=== PATIENT | female | born 1970 | race American Indian/Alaskan Native ===

== ENCOUNTER 2017-01-27 17:27 | Emergency (ER) | payer SELFPAY ==
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
[2017-01-27] MEDS ORDERED: TORADOL IM ONE (21:53)
[2017-01-27] MEDS ORDERED: FLEXERIL PO ONE (21:54)
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
[2017-01-27] MEDS ORDERED: BENADRYL ONE (22:57)
[2017-01-27] MEDS ORDERED: BENADRYL IM ONE (22:57)
[2017-01-27 23:29] VITALS: BP 137/86
== END 2017-01-27 23:27 | disposition home or self-care (01) ==
LOC: ED 17:27
DX: S52.124A Nondisplaced fracture of head of right radius, initial encounter for closed fracture (principal); E11.9 Type 2 diabetes mellitus without complications; M19.90 Unspecified osteoarthritis, unspecified site; J45.909 Unspecified asthma, uncomplicated; J44.9 Chronic obstructive pulmonary disease, unspecified; F12.90 Cannabis use, unspecified, uncomplicated; Z87.891 Personal history of nicotine dependence; Z86.73 Personal history of transient ischemic attack (TIA), and cerebral infarction without residual deficits; V49.9XXA Car occupant (driver) (passenger) injured in unspecified traffic accident, initial encounter; Y93.89 Activity, other specified; Y99.9 Unspecified external cause status; Y92.410 Unspecified street and highway as the place of occurrence of the external cause
CPT/HCPCS: 29105; 73080; 73090; 96372; 99284; J1200; J1885

== ENCOUNTER 2017-04-22 12:23 | Emergency (ER) | payer MEDICAID ==
[2017-04-22 12:34] VITALS: BP 153/73
--- NOTE | 2017-04-22 14:52 | Emergency Department Report ---
HPI - General Chief Complaint: Upper Respiratory Infection Time Seen by Provider: 04/22/17 14:38 - HPI HPI: There reporting cough and flulike symptoms for about a week she said that prior to that she is having nasal congestion and runny nose that she uses Flonase that didn't help. She is complaining that her chest is sore with cough and she has a productive yellow cough. Denies any nausea or vomiting. Denies any fever or chills. Denies any shortness of breath. She is complaining of bilateral ear pain. Pain to her ear 6 out of 10 and achy. Patient has history of asthma and says that she believes she is having an asthma flare and she tried her Symbicort and Ventolin but is just not helping and. She has a history of arthritis, asthma, COPD, TIA, DJD and diet-controlled diabetes. She' s had tubal ligation and hysterectomy right hip replacement and cervical surgery. Patient says she tried [id number] medication but is also not helping. ED Past Medical Hx - Past Medical History Previous Medical History?: Yes Hx CVA: (TIA) Hx Diabetes: Yes (DIET CONTROLLED) Hx Arthritis: Yes Hx Asthma: Yes Hx COPD: Yes Additional medical history: DJD - Surgical History Past Surgical History?: Yes Additional Surgical History: TUBAL LIGATION. HYSTERECTOMY. RIGHT HIP REPLACEMENT. CERVICAL SURGERY - Family History Family history: hypertension - Social History Smoking Status: Former Smoker Substance Use Type: Alcohol, Prescribed - Medications Home Medications: Home Medications Medication Instructions Recorded Confirmed Last Taken Type Cyclobenzaprine [Flexeril] 10 mg PO BID PRN #30 tablet 01/27/17 Unknown Rx Ibuprofen [Motrin] 800 mg PO Q8HR PRN #40 tablet 01/27/17 Unknown Rx Amoxicillin/Potassium Clav 1 each PO Q12H #20 tablet 04/22/17 Unknown Rx [Augmentin 875-125 Tablet] Cetirizine HCl [ZyrTEC] 10 mg PO QAM #1 capsule 04/22/17 Unknown Rx Fluticasone [Flonase] 1 spray NS QDAY #1 bottle 04/22/17 Unknown Rx predniSONE [Deltasone] 50 mg PO QAM #5 tablet 04/22/17 Unknown Rx ED Review of Systems ROS: Stated complaint: COUGH, CHEST PAIN Other details as noted in HPI Comment: All other systems reviewed and negative Constitutional: no symptoms reported Eyes: denies: eye pain, vision change ENT: ear pain, congestion (congestion with drainage). denies: throat pain Respiratory: cough. denies: orthopnea, shortness of breath, SOB with exertion, SOB at rest, stridor, wheezing Cardiovascular: denies: chest pain, palpitations, dyspnea on exertion, orthopnea , edema, syncope, paroxysmal nocturnal dyspnea Gastrointestinal: denies: abdominal pain, nausea, vomiting Genitourinary: denies: urgency, dysuria, frequency, hematuria, discharge, abnormal menses, dyspareunia Skin: denies: rash Neurological: denies: headache, weakness, numbness, paresthesias, confusion, abnormal gait, vertigo Physical Exam - Physical Exam Vital Signs: Vital Signs 04/22/17 12:29 Temperature 98.1 F Pulse Rate 74 Respiratory 18 Rate Blood Pressure 153/73 O2 Sat by Pulse 97 Oximetry Vital Signs 04/22/17 04/22/17 04/22/17 12:29 15:21 15:29 Temperature 98.1 F Pulse Rate 74 Pulse Rate [ 64 66 Posterior Bilateral Throughout] Respiratory 18 Rate Respiratory 16 16 Rate [Posterior Bilateral Throughout] Blood Pressure 153/73 O2 Sat by Pulse 97 Oximetry General: This is a 47-year-old female well-nourished well-developed in no acute distress. Physical Exam: Head: Normocephalic, atraumatic, no abrasion, no bruising and no contusion. Eyes: Biateral pupils equal and reactive to light, bilateral EOM intact.. Bilateral conjunctival and sclera without injection, normal accommodation. No nystagmus Mouth: Moist, no pharyngeal erythema or exudate. No peritonsillar abscesses. Uvula is midline and oral airways patent. Ears: BiLateral TM congested without any erythema, bilateral EAC normal and no maxillary or frontal sinus tenderness. Clear drainage noted Neck: Supple,No Cervical adenopathy, full range of motion and no C-spine tenderness. No swelling or tracheal deviation normal reflexes Abdomen: Non tender to palpate in all quadrants, no guarding rebound tenderness. Normal bowel thousand all quadrants and no CVA tenderness Cardiovascular: S1, S2. Regular rate and rhythm. No murmur. Capillary refill is less then 3 seconds. Lungs: Show wheezes and upper lung young. No rhonchi or rales. No chest wall tenderness. Pt with dry cough. No use of accessory muscles. MSK: Strength 5/5 in all extremities. No joint deformity or crepitus. Normal inspection. Full range of motion to all extremities Extremities: No clubbing, cyanosis or edema. +2 pulses. No neurovascular compromise Skin: Clean, dry and intact. No rash or lesions. ED Course Vital Signs 04/22/17 12:29 Temperature 98.1 F Pulse Rate 74 Respiratory 18 Rate Blood Pressure 153/73 O2 Sat by Pulse 97 Oximetry Vital Signs 04/22/17 04/22/17 04/22/17 12:29 15:21 15:29 Temperature 98.1 F Pulse Rate 74 Pulse Rate [ 64 66 Posterior Bilateral Throughout] Respiratory 18 Rate Respiratory 16 16 Rate [Posterior Bilateral Throughout] Blood Pressure 153/73 O2 Sat by Pulse 97 Oximetry - Reevaluation(s) Reevaluation #1: 04/22/17 16:33 She received DuoNeb 1 treatment in emergency room and lungs reevaluated with clear lung sounds and she says she feels better. She received Deltasone 60 mg by mouth and Rocephin 1 g IM in the emergency room. ED Medical Decision Making - Medical Decision Making ED course: Patient here reports respiratory symptoms and physical findings for acute asthma exacerbation, cough and she has multiple comormidities therefore patient will be placed on antibiotic due to the prolonged symptoms. She is at risk for pneumonia from multiple comorbidities. Patient given DuoNeb treatment 1 in the emergency room, Deltasone 60 mg by mouth and Rocephin 1 g IM. She had no adverse reaction from medication. Lung sounds clear after DuoNeb treatment. Patient reports that she felt better. Decision to place patient on antibiotic due to prolonged time of symptoms and multiple medical problems with her risk for infection. I instructed patient that she should continue to take her asthma medication as previously prescribed and that I'll add steroid and antibiotic to her routine. Patient was understanding the discharge instruction and treatment plan and discharged home with prescription for Flonase, Zyrtec, Augmentin and prednisone. She does have a primary care physician and she was instructed to follow-up with her primary care physician in 4 days Critical care attestation.: If time is entered above; I have spent that time in minutes in the direct care of this critically ill patient, excluding procedure time. ED Disposition Clinical Impression: Cough in adult Acute asthma exacerbation Qualifiers: Asthma severity: mild Asthma persistence: intermittent Qualified Code(s): J45.21 - Mild intermittent asthma with (acute) exacerbation Disposition: DC-01 TO HOME OR SELFCARE Is pt being admited?: No Does the pt Need Aspirin: No Condition: Stable Instructions: Asthma (ED), Acute Cough (ED) Additional Instructions: Follow-up with the primary care physician on 04/26 2017 Take antibiotic as prescribed Ireasey her fluid intake Usenebulizer treatment as previously prescribed Prescriptions: Amoxicillin/Potassium Clav [Augmentin 875-125 Tablet] 1 each PO Q12H #20 tablet Cetirizine HCl [ZyrTEC] 10 mg PO QAM #1 capsule Fluticasone [Flonase] 1 spray NS QDAY #1 bottle predniSONE [Deltasone] 50 mg PO QAM #5 tablet Referrals: PRIMARY CAREMD [Primary Care Provider] - 04/26/17 Forms: Work/School Release Form(ED)
[2017-04-22] MEDS ORDERED: DELTASONE PO ONE (14:58)
[2017-04-22] MEDS ORDERED: PROVENTIL IH ONE (14:58)
[2017-04-22] MEDS ORDERED: ROCEPHIN IM STA (15:02)
[2017-04-22] MEDS ORDERED: XYLOCAINE 1% MPF 5 mL INFILTRATI ONE (15:02)
== END 2017-04-22 16:49 | disposition home or self-care (01) ==
LOC: ED 12:23
DX: J45.21 Mild intermittent asthma with (acute) exacerbation (principal); E11.9 Type 2 diabetes mellitus without complications; J44.9 Chronic obstructive pulmonary disease, unspecified; Z86.73 Personal history of transient ischemic attack (TIA), and cerebral infarction without residual deficits; Z87.891 Personal history of nicotine dependence; M19.90 Unspecified osteoarthritis, unspecified site; Z88.5 Allergy status to narcotic agent
CPT/HCPCS: 94640; 96372; 99283; J0696; J7512

== ENCOUNTER 2017-06-18 12:24 | Emergency (ER) | payer MEDICAID ==
[2017-06-18 12:31] VITALS: BP 159/87
[2017-06-18] MEDS ORDERED: BENADRYL IM ONE (14:23)
[2017-06-18] MEDS ORDERED: TORADOL IM ONE (14:23)
--- NOTE | 2017-06-18 14:33 | Emergency Department Report ---
Chief Complaint: Headache Stated Complaint: HEADACHE X3 DAYS Time Seen by Provider: 06/18/17 14:12 - HPI History of Present Illness: Patient is a 47-year-old Chinese female who is presenting with headache patient states that she has a history of cervical neck pain had surgery approximately 7 years ago. Patient states that her headache is similar to the headache she would get when she would have neck pain exacerbations. Patient is having neck strain with radiation of the headache and posterior head. Patient states there is some mild light sensitivity but no noise sensitivity no nausea vomiting no fever no nuchal rigidity at this time. Patient states the headache is 6 out of 10 has been present for approximately 2 days - ROS Review of Systems: Review of systems is negative for all illness except for those in HPI - Exam Vital Signs: Vital Signs 06/18/17 06/18/17 12:27 13:45 Temperature 98.6 F Pulse Rate 84 Respiratory 18 18 Rate Blood Pressure 159/87 O2 Sat by Pulse 96 100 Oximetry Physical Exam: Focused physical exam patient's general exam no acute distress HEENT within normal limits eyes pupils equal round and reactive to light oropharynx is clear lungs clear to auscultation bilaterally no wheezes rales or rhonchi abdomen soft nontender MSE screening note: Focused history and physical exam performed. Due to findings the following was ordered: ED Medical Decision Making - Medical Decision Making Patient can't take Toradol when she gets Benadryl give her a Toradol shot of Benadryl and start her on Robaxin at home. ED Disposition for MSE Clinical Impression: Tension headache Disposition: DC-01 TO HOME OR SELFCARE Is pt being admited?: No Does the pt Need Aspirin: No Condition: Fair Prescriptions: methOCARBAMOL [Robaxin TAB] 500 mg PO Q6H PRN #15 tablet PRN Reason: Muscle Spasm Referrals: LORENZO ROWE MD [Primary Care Provider] - 3-5 Days
== END 2017-06-18 14:50 | disposition home or self-care (01) ==
LOC: ED 12:24
DX: G44.209 Tension-type headache, unspecified, not intractable (principal); M54.2 Cervicalgia; Z88.6 Allergy status to analgesic agent; Z88.5 Allergy status to narcotic agent
CPT/HCPCS: 96372; 99282; J1200; J1885

== ENCOUNTER 2017-06-28 10:25 | Emergency (ER) | payer MEDICAID ==
[2017-06-28 11:27] VITALS: BP 111/76
[2017-06-28] MEDS ORDERED: BOOSTRIX IM ONE (11:44)
--- NOTE | 2017-06-28 11:49 | Emergency Department Report ---
ED Laceration HPI - HPI Chief Complaint: Wound/Laceration Stated Complaint: FINGER LACERATION Time Seen by Provider: 06/28/17 11:36 Location: Upper Extremity Severity: mild Tetanus Status: Not up to Date Laceration Symptoms: No Foreign Body Sensation, No Numbness, No Weakness, No Pain Other History: This is a 47-year-old female nontoxic, well nourished in appearance, no acute signs of distress presents to the ED with c/o of left ring finger superficial laceration that occurred this morning. She stated she was cutting with a knife and injured her left ring finger. Patient denies any numbness, tingling, fever, chills, nausea vomiting or chest pain. Patient's last tetanus shot was 5 years ago. He states multiple allergies. Past medical history includes arthritis, asthma, COPD, CVA, and diet-controlled diabetes. ED Review of Systems ROS: Stated complaint: FINGER LACERATION Other details as noted in HPI Constitutional: denies: chills, fever Eyes: denies: eye pain, eye discharge, vision change ENT: denies: ear pain, throat pain Respiratory: denies: cough, shortness of breath, wheezing Cardiovascular: denies: chest pain, palpitations Endocrine: no symptoms reported Gastrointestinal: denies: abdominal pain, nausea, diarrhea Genitourinary: denies: urgency, dysuria, discharge Musculoskeletal: denies: back pain, joint swelling, arthralgia Skin: other (lac). denies: rash, lesions Neurological: denies: headache, weakness, paresthesias Psychiatric: denies: anxiety, depression Hematological/Lymphatic: denies: easy bleeding, easy bruising ED Past Medical Hx - Past Medical History Hx CVA: Yes (TIA) Hx Diabetes: Yes (DIET CONTROLLED) Hx Arthritis: Yes Hx Asthma: Yes Hx COPD: Yes Additional medical history: DJD - Surgical History Additional Surgical History: TUBAL LIGATION. HYSTERECTOMY. RIGHT HIP REPLACEMENT. CERVICAL SURGERY - Social History Smoking Status: Never Smoker Substance Use Type: None - Medications Home Medications: Home Medications Medication Instructions Recorded Confirmed Last Taken Type Cyclobenzaprine [Flexeril] 10 mg PO BID PRN #30 tablet 01/27/17 Unknown Rx Ibuprofen [Motrin] 800 mg PO Q8HR PRN #40 tablet 01/27/17 Unknown Rx Amoxicillin/Potassium Clav 1 each PO Q12H #20 tablet 04/22/17 Unknown Rx [Augmentin 875-125 Tablet] Cetirizine HCl [ZyrTEC] 10 mg PO QAM #1 capsule 04/22/17 Unknown Rx Fluticasone [Flonase] 1 spray NS QDAY #1 bottle 04/22/17 Unknown Rx predniSONE [Deltasone] 50 mg PO QAM #5 tablet 04/22/17 Unknown Rx methOCARBAMOL [Robaxin TAB] 500 mg PO Q6H PRN #15 tablet 06/18/17 Unknown Rx Sulfamethoxazole/Trimethoprim 1 each PO BID #14 tablet 06/28/17 Unknown Rx [Bactrim DS TAB] Laceration Physical Exam - Exam General: Vital signs noted. No distress. Alert and acting appropriately. GENERAL: The patient is a well-developed, well-nourished female in no apparent distress. Patient is alert and acting appropriately for age. Alert and oriented 3, no apparent distress, normal gait, atraumatic. HEENT: Head is normocephalic and atraumatic. PERRL, Extraocular muscles are intact. Pupils are equal, round, and reactive to light and accommodation. Nares appeared normal. Mouth is well hydrated and without lesions. Mucous membranes are moist. Posterior pharynx clear of any exudate or lesions. Mouth is well hydrated and without lesions. Tonsils not erythematous or swollen. Uvula midline. Tongue elevated. Mucous members are moist. Posterior pharynx clear, no exudate or lesions. Patent airways. NECK: Supple. No carotid bruits. No lymphadenopathy or thyromegaly.nontender. No meningitic signs are noted. LUNGS: Clear to auscultation. Non labor breathing. No intercostal retractions. Symmetrical with respiration, no wheezing, no rales, or crackles. HEART: Regular rate and rhythm without murmur, rubs or gallops. No reproducible. S1, S2 present, regular rate and rhythm without murmur, no rubs, no gallops. ABDOMEN: Soft, nontender, and nondistended. Positive bowel sounds. No hepatosplenomegaly was noted. No guarding or rebound tenderness, negative epigastric bruit. Negative psoas sign, negative marion sign, negative McBurneys sign EXTREMITIES: Without any cyanosis, clubbing, rash, lesions or edema. Peripheral pulses intact. Capillary refill less than 2 seconds. Full range of motion bilaterally. NEUROLOGIC: Cranial nerves II through XII are grossly intact. Alert and oriented x 3. Normal gait. Symmetrical strength and sensation. Reflexes 2+ throughout. Cerebellar testing normal. GCS score of 15. PSYCHIATRIC: Normal affect with no suicidal or homicidal ideations. Skin: 1 cm superficial linear laceration to the left ring finger. No abscess or swelling noted. Bleeding under control. Wound Length (cm): 1 Laceration Location: Upper Extremity (left fourth finger) Laceration Exam: Yes Normal Distal CMS, No Foreign Body, No Exposed Tendon, Vessel, or Nerve, No Tendon Injury ED Course Vital Signs 06/28/17 11:22 Temperature 98.3 F Pulse Rate 60 Respiratory 18 Rate Blood Pressure 111/76 O2 Sat by Pulse 100 Oximetry - Reevaluation(s) Reevaluation #1: 06/28/17 11:47 Patient is speaking in full sentences with no signs of distress noted. - Laceration /Wound Repair Left Finger Wound Location: upper extremity (left ring finger) Wound Length (cm): 1 Wound's Depth, Shape: superficial, linear Wound Explored: clean Irrigated w/ Saline (ccs): 40 Betadine Prep?: Yes Wound Repaired With: Dermabond Sterile Dressing Applied?: Yes Progress: Under sterile field, I used Betadine to clean the area. I then used 40 mL of normal saline to flush the area. I then used Dermabond to approximate the laceration. I then applied a sterile 4 x 4 with tape. Minimal bleeding noted but is under control. Patient tolerated procedure well with no signs of distress. ED Medical Decision Making - Medical Decision Making 47-year-old female that presents with superficial laceration. Patient is stable and was examined by me. Tetanus booster has been received patient ED. Laceration repair has been performed with Dermabond. Sterile dressing applied. I'll treat patient empirically with Bactrim due to patient stating it was a dirty knife. Patient was instructed Follow-up with a primary care doctor in 3- 5 days or if symptoms worsen and continue return to emergency room as soon as possible. At time time of discharge, the patient does not seem toxic or ill in appearance. No acute signs of distress noted. Patient agrees to discharge treatment plan of care. No further questions noted by the patient. Critical care attestation.: If time is entered above; I have spent that time in minutes in the direct care of this critically ill patient, excluding procedure time. ED Disposition Clinical Impression: Laceration Disposition: DC-01 TO HOME OR SELFCARE Is pt being admited?: No Does the pt Need Aspirin: No Condition: Stable Instructions: Laceration (ED), Skin Adhesive Care (ED) Additional Instructions: Follow-up with a primary care doctor in 3-5 days or if symptoms worsen and continue return to emergency room as soon as possible. Prescriptions: Sulfamethoxazole/Trimethoprim [Bactrim DS TAB] 1 each PO BID #14 tablet Referrals: PRIMARY CAREMD [Primary Care Provider] - 3-5 Days WENDY SAHNI MD [Staff Physician] - 3-[address] [facility] [Outside] - 3-5 Days [facility] [Outside] - 3-5 Days Forms: Work/School Release Form(ED)
== END 2017-06-28 12:02 | disposition home or self-care (01) ==
LOC: ED 10:25
DX: S61.215A Laceration without foreign body of left ring finger without damage to nail, initial encounter (principal); Z86.73 Personal history of transient ischemic attack (TIA), and cerebral infarction without residual deficits; M19.90 Unspecified osteoarthritis, unspecified site; J45.909 Unspecified asthma, uncomplicated; W26.0XXA Contact with knife, initial encounter; Y93.89 Activity, other specified; Y92.89 Other specified places as the place of occurrence of the external cause; Y99.8 Other external cause status
CPT/HCPCS: 90471; 90715

== ENCOUNTER 2018-03-11 11:31 | Emergency (ER) | payer SELFPAY ==
[2018-03-11 12:02] VITALS: BP 146/71
== END 2018-03-11 14:00 | disposition left against medical advice (07) ==
LOC: ED 11:31
DX: M54.2 Cervicalgia (principal); Z53.21 Procedure and treatment not carried out due to patient leaving prior to being seen by health care provider

== ENCOUNTER 2018-03-16 08:53 | Emergency (ER) | payer MEDICAID ==
[2018-03-16 09:00] VITALS: BP 166/61
[2018-03-16] MEDS ORDERED: KEFLEX PO ONE (09:21)
--- NOTE | 2018-03-16 09:21 | Emergency Department Report ---
Abscess Boil HPI - HPI Chief Complaint: Skin/Abscess/Foreign Body Stated Complaint: LUMP BACK OF (R) EAR Time Seen by Provider: 03/16/18 09:12 Duration: 1 Day Location: Other (behind left ear lobe) Severity: Severe History: Yes Pain (8/10 and throbbing), No Fever, No Purulent Drainage, No Numbness, No Insect Bite HPI: She reported that she has small bump behind left earlobe that started yesterday and she says given her headache. She says very painful pain is 8/10 and throbbing. Denies any insect bite and that she thinks is an infected pimple. Tetanus shot is up-to-date. Denies any nausea vomiting. Denies a pain inside her ear any drainage from the ear. Denies any fever or chills. Denies any fever or slurred cough. Worse with touch and no alleviating factors. She says to try to get pus out but it did not come out. No medication taken prior to coming to the emergency room. Home Medications: Previous Rx's Medication Instructions Recorded Last Taken Type Cyclobenzaprine [Flexeril] 10 mg PO BID PRN #30 tablet 01/27/17 Unknown Rx Ibuprofen [Motrin] 800 mg PO Q8HR PRN #40 tablet 01/27/17 Unknown Rx Amoxicillin/Potassium Clav 1 each PO Q12H #20 tablet 04/22/17 Unknown Rx [Augmentin 875-125 Tablet] Cetirizine HCl [ZyrTEC] 10 mg PO QAM #1 capsule 04/22/17 Unknown Rx Fluticasone [Flonase] 1 spray NS QDAY #1 bottle 04/22/17 Unknown Rx predniSONE [Deltasone] 50 mg PO QAM #5 tablet 04/22/17 Unknown Rx methOCARBAMOL [Robaxin TAB] 500 mg PO Q6H PRN #15 tablet 06/18/17 Unknown Rx Sulfamethoxazole/Trimethoprim 1 each PO BID #14 tablet 06/28/17 Unknown Rx [Bactrim DS TAB] Ibuprofen [Motrin] 600 mg PO Q8H PRN #12 tablet 03/16/18 Unknown Rx cephALEXin [Keflex] 500 mg PO Q8HR 7 Days #21 cap 03/16/18 Unknown Rx Allergies/Adverse Reactions: Allergies Allergy/AdvReac Type Severity Reaction Status Date / Time hydrocodone bitartrate AdvReac Vomiting Verified 03/16/18 08:58 [From Vicodin] hydromorphone HCl AdvReac Vomiting Verified 03/16/18 08:58 [From Dilaudid] latex AdvReac Itching Verified 03/16/18 08:58 morphine AdvReac Vomiting Verified 03/16/18 08:58 oxycodone HCl [From Percocet] AdvReac Vomiting Verified 03/16/18 08:58 propoxyphene napsylate AdvReac Vomiting Verified 03/16/18 08:58 [From Darvocet-N 100] tramadol AdvReac Itching Verified 03/16/18 08:58 SEAFOOD Allergy Swelling Uncoded 03/11/18 11:58 ED Review of Systems ROS: Stated complaint: LUMP BACK OF (R) EAR Other details as noted in HPI Constitutional: denies: chills, fever Eyes: denies: eye pain, eye discharge, vision change ENT: denies: congestion Respiratory: denies: cough, shortness of breath, SOB with exertion, SOB at rest , stridor, wheezing Cardiovascular: denies: chest pain, palpitations Gastrointestinal: denies: nausea, vomiting Genitourinary: denies: discharge Musculoskeletal: denies: joint swelling, arthralgia Skin: denies: rash, lesions Neurological: headache. denies: weakness, numbness, paresthesias, confusion, abnormal gait, vertigo ED Past Medical Hx - Past Medical History Previous Medical History?: Yes Hx CVA: Yes (TIA) Hx Diabetes: Yes (DIET CONTROLLED) Hx Arthritis: Yes Hx Asthma: Yes Hx COPD: Yes Additional medical history: DJD - Surgical History Past Surgical History?: Yes Additional Surgical History: TUBAL LIGATION. HYSTERECTOMY. RIGHT HIP REPLACEMENT. CERVICAL SURGERY - Family History Family history: hypertension - Social History Smoking Status: Never Smoker Substance Use Type: None - Medications Home Medications: Home Medications Medication Instructions Recorded Confirmed Last Taken Type Cyclobenzaprine [Flexeril] 10 mg PO BID PRN #30 tablet 01/27/17 Unknown Rx Ibuprofen [Motrin] 800 mg PO Q8HR PRN #40 tablet 01/27/17 Unknown Rx Amoxicillin/Potassium Clav 1 each PO Q12H #20 tablet 04/22/17 Unknown Rx [Augmentin 875-125 Tablet] Cetirizine HCl [ZyrTEC] 10 mg PO QAM #1 capsule 04/22/17 Unknown Rx Fluticasone [Flonase] 1 spray NS QDAY #1 bottle 04/22/17 Unknown Rx predniSONE [Deltasone] 50 mg PO QAM #5 tablet 04/22/17 Unknown Rx methOCARBAMOL [Robaxin TAB] 500 mg PO Q6H PRN #15 tablet 06/18/17 Unknown Rx Sulfamethoxazole/Trimethoprim 1 each PO BID #14 tablet 06/28/17 Unknown Rx [Bactrim DS TAB] Ibuprofen [Motrin] 600 mg PO Q8H PRN #12 tablet 03/16/18 Unknown Rx cephALEXin [Keflex] 500 mg PO Q8HR 7 Days #21 cap 03/16/18 Unknown Rx ED Abscess Boil Physical Exam - Exam General: Vital signs noted. No distress. Alert and acting appropriately. 48-year-old female well-nourished well-developed in no acute distress. Front/Back of Body, Lg (Color): 1 - Pustule to the left posterior earlobe. Erythema tender to palpate with opening and without any drainage. Positive induration and fluctuance. Size: 1 cm (0.2 cm) Exam: Yes Tenderness (left posterior lobe), Yes Fluctuance, Yes Surrounding Cellulites/Erythema, Yes Normal Neurologic Exam (and oriented 3 and normal gait ), Yes Normal Circulation (No cce. + 2 pulses in all extremities, no neurovascular compromise), No Lymphangitis, No Crepitation, No Heart Murmur ( regular rate) I & D Note - I & D Note I & D Note: Simple abscess: Patient reports to her earlobe. Area cleansed with iodine and saline and #22-gauge needle used to make small hole and manually express white pus from the site. No induration present. Minimal irritation and patient feels better. Area cleansed with normal saline and then the chest and site and she was told to follow-up with her primary care physician. ED Course Vital Signs 03/16/18 08:58 Temperature 98.1 F Pulse Rate 64 Respiratory 16 Rate Blood Pressure 166/61 O2 Sat by Pulse 98 Oximetry - Reevaluation(s) Reevaluation #1: 03/16/18 09:58 Status stable C procedure note for details and incision and drainage. She did not want anything for pain emergency room but she was given Keflex 500 mg by mouth prior to discharge. Critical care attestation.: If time is entered above; I have spent that time in minutes in the direct care of this critically ill patient, excluding procedure time. ED Medical Decision Making - Medical Decision Making This is a 48-year-old female here reporting pain to the back of her left ear and thinks the infected pimple. Assessment/plan 1: Painful pustule, left earlobe posteriorly-see procedure note for simple incision and drainage. She is started on Keflex that she did not want anything for pain and she was sent home on Motrin and Keflex and to follow up with her primary care physician . Vital signs are stable she is afebrile and she is nontoxic in appearance. discharged home in stable condition. ED Disposition Clinical Impression: Simple abscess, Encounter for incision and drainage procedure Disposition: TO HOME OR SELFCARE Is pt being admited?: No Does the pt Need Aspirin: No Condition: Stable Instructions: Abscess (ED), Abscess Incision and Drainage (ED), Acute Wound Care (ED) Additional Instructions: Take antibiotic as prescribed Follow-up with your primary care physician in 5 days Apply warm compresses to affected area 3 times a day to facilitate drainage If you noticed that area it is increasing in size, redness, develop fever, nausea and there vomited , palpitation and feeling weak. Return to the emergency room TONE Keep affected area clean and dry. Followed discharge instruction on acute wound care . Apply bacitroban ointment to affected area twice daily. Referrals: PRIMARY CAREMD [Primary Care Provider] - 03/21/18 [facility] [Outside] - 03/21/18 Forms: Work/School Release Form(ED)
== END 2018-03-16 09:45 | disposition home or self-care (01) ==
LOC: ED 08:53
DX: H66.42 Suppurative otitis media, unspecified, left ear (principal); E11.9 Type 2 diabetes mellitus without complications; M19.90 Unspecified osteoarthritis, unspecified site; J44.9 Chronic obstructive pulmonary disease, unspecified; Z86.73 Personal history of transient ischemic attack (TIA), and cerebral infarction without residual deficits; Z90.710 Acquired absence of both cervix and uterus; Z98.51 Tubal ligation status; Z88.8 Allergy status to other drugs, medicaments and biological substances; Z88.6 Allergy status to analgesic agent; Z91.040 Latex allergy status; Z91.013 Allergy to seafood

== ENCOUNTER 2018-09-14 08:34 | Emergency (ER) | payer MEDICAID ==
[2018-09-14 08:45] VITALS: BP 165/68
[2018-09-14] MEDS ORDERED: IBUPROFEN PO ONE (09:17)
--- NOTE | 2018-09-14 09:26 | Emergency Department Report ---
ED Lower Extremity HPI - General Chief Complaint: Extremity Injury, Lower Stated Complaint: FALL/ LEFT FOOT PAIN Time Seen by Provider: 09/14/18 09:08 Source: family Mode of arrival: Ambulatory Limitations: No Limitations - History of Present Illness Initial Comments: This is a 48-year-old female nontoxic, well nourished in appearance, no acute signs of distress presents to the ED with c/o of left knee, ankle and tib-fib pain 1 day. Patient stated that while she was felling she twisted her knee and ankle. Patient denies any direct trauma. Patient denies any numbness, tingling, fever, chills, nausea, vomiting, chest pain, shortness of breath, headache, stiff neck. Patient denies any joint swelling or joint redness. Patient denies decreased range of motion. Patient stated has decreased gait due to pain. -: This morning Injury: Leg: Left, Knee: Left, Ankle: Left Severity: mild Severity scale (0 -10): 8 Improves With: immobilization Worsens With: weight bearing, movement, palpation Associated Symptoms: swelling, able to partially bear weight, ambulatory. denies: snap/pop sensation, numbness, tingling, unable to bear weight - Related Data Previous Rx's Medication Instructions Recorded Last Taken Type Cyclobenzaprine [Flexeril] 10 mg PO BID PRN #30 tablet 01/27/17 Unknown Rx Ibuprofen [Motrin] 800 mg PO Q8HR PRN #40 tablet 01/27/17 Unknown Rx Amoxicillin/Potassium Clav 1 each PO Q12H #20 tablet 04/22/17 Unknown Rx [Augmentin 875-125 Tablet] Cetirizine HCl [ZyrTEC] 10 mg PO QAM #1 capsule 04/22/17 Unknown Rx Fluticasone [Flonase] 1 spray NS QDAY #1 bottle 04/22/17 Unknown Rx predniSONE [Deltasone] 50 mg PO QAM #5 tablet 04/22/17 Unknown Rx methOCARBAMOL [Robaxin TAB] 500 mg PO Q6H PRN #15 tablet 06/18/17 Unknown Rx Sulfamethoxazole/Trimethoprim 1 each PO BID #14 tablet 06/28/17 Unknown Rx [Bactrim DS TAB] Ibuprofen [Motrin] 600 mg PO Q8H PRN #12 tablet 03/16/18 Unknown Rx cephALEXin [Keflex] 500 mg PO Q8HR 7 Days #21 cap 03/16/18 Unknown Rx Ibuprofen [Motrin] 600 mg PO Q8H PRN #20 tablet 09/14/18 Unknown Rx Allergies Allergy/AdvReac Type Severity Reaction Status Date / Time hydrocodone bitartrate AdvReac Vomiting Verified 03/16/18 08:58 [From Vicodin] hydromorphone HCl AdvReac Vomiting Verified 03/16/18 08:58 [From Dilaudid] latex AdvReac Itching Verified 03/16/18 08:58 morphine AdvReac Vomiting Verified 03/16/18 08:58 oxycodone HCl [From Percocet] AdvReac Vomiting Verified 03/16/18 08:58 propoxyphene napsylate AdvReac Vomiting Verified 03/16/18 08:58 [From Darvocet-N 100] tramadol AdvReac Itching Verified 03/16/18 08:58 SEAFOOD Allergy Swelling Uncoded 03/11/18 11:58 ED Review of Systems ROS: Stated complaint: FALL/ LEFT FOOT PAIN Other details as noted in HPI Constitutional: denies: chills, fever Eyes: denies: eye pain, eye discharge, vision change ENT: denies: ear pain, throat pain Respiratory: denies: cough, shortness of breath, wheezing Cardiovascular: denies: chest pain, palpitations Endocrine: no symptoms reported Gastrointestinal: denies: abdominal pain, nausea, diarrhea Genitourinary: denies: urgency, dysuria, discharge Musculoskeletal: arthralgia. denies: back pain, joint swelling Skin: denies: rash, lesions Neurological: denies: headache, weakness, paresthesias Psychiatric: denies: anxiety, depression Hematological/Lymphatic: denies: easy bleeding, easy bruising ED Past Medical Hx - Past Medical History Previous Medical History?: Yes Hx CVA: Yes (TIA) Hx Diabetes: Yes (DIET CONTROLLED) Hx Arthritis: Yes Hx Asthma: Yes Hx COPD: Yes Additional medical history: DJD - Surgical History Past Surgical History?: Yes Additional Surgical History: TUBAL LIGATION. HYSTERECTOMY. RIGHT HIP REPLACEMENT. CERVICAL SURGERY - Social History Smoking Status: Former Smoker Substance Use Type: None - Medications Home Medications: Home Medications Medication Instructions Recorded Confirmed Last Taken Type Cyclobenzaprine [Flexeril] 10 mg PO BID PRN #30 tablet 01/27/17 Unknown Rx Ibuprofen [Motrin] 800 mg PO Q8HR PRN #40 tablet 01/27/17 Unknown Rx Amoxicillin/Potassium Clav 1 each PO Q12H #20 tablet 04/22/17 Unknown Rx [Augmentin 875-125 Tablet] Cetirizine HCl [ZyrTEC] 10 mg PO QAM #1 capsule 04/22/17 Unknown Rx Fluticasone [Flonase] 1 spray NS QDAY #1 bottle 04/22/17 Unknown Rx predniSONE [Deltasone] 50 mg PO QAM #5 tablet 04/22/17 Unknown Rx methOCARBAMOL [Robaxin TAB] 500 mg PO Q6H PRN #15 tablet 06/18/17 Unknown Rx Sulfamethoxazole/Trimethoprim 1 each PO BID #14 tablet 06/28/17 Unknown Rx [Bactrim DS TAB] Ibuprofen [Motrin] 600 mg PO Q8H PRN #12 tablet 03/16/18 Unknown Rx cephALEXin [Keflex] 500 mg PO Q8HR 7 Days #21 cap 03/16/18 Unknown Rx Ibuprofen [Motrin] 600 mg PO Q8H PRN #20 tablet 09/14/18 Unknown Rx ED Physical Exam - General Limitations: No Limitations General appearance: alert, in no apparent distress - Head Head exam: Present: atraumatic, normocephalic - Eye Eye exam: Present: normal appearance - Neck Neck exam: Present: normal inspection, full ROM - Extremities Exam Extremities exam: Present: normal inspection, full ROM, tenderness, normal capillary refill. Absent: joint swelling - Expanded Lower Extremity Exam Left Hip exam: Present: normal inspection, full ROM. Absent: tenderness Upper Leg exam: Present: normal inspection, full ROM. Absent: tenderness Knee exam: Present: normal inspection, full ROM, tenderness, swelling, full knee extension. Absent: abrasion, laceration, ecchymosis, deformity, crepidus, dislocation, erythema, pain w/ pronation/supination, posterior draw sign, pain/laxity with valgus, pain/laxity with varus Lower Leg exam: Present: normal inspection, full ROM, tenderness. Absent: swelling, abrasion Ankle exam: Present: normal inspection, full ROM, tenderness, swelling. Absent: abrasion, laceration, ecchymosis, deformity, crepidus, dislocation, erythema, anterior draw sign Foot/Toe exam: Present: normal inspection, full ROM. Absent: tenderness Neuro vascular tendon exam: Present: no vascular compromise Gait: Positive: observed and limited by pain - Back Exam Back exam: Present: normal inspection, full ROM. Absent: tenderness, CVA tenderness (R), CVA tenderness (L), muscle spasm, paraspinal tenderness, vertebral tenderness, rash noted - Neurological Exam Neurological exam: Present: alert, oriented X3 - Psychiatric Psychiatric exam: Present: normal affect, normal mood - Skin Skin exam: Present: warm, dry, intact, normal color. Absent: rash ED Course Vital Signs 09/14/18 08:43 Temperature 97.8 F Pulse Rate 77 Respiratory 16 Rate Blood Pressure 165/68 O2 Sat by Pulse 97 Oximetry - Reevaluation(s) Reevaluation #1: 09/14/18 09:26 Patient is speaking in full sentences with no signs of distress noted. ED Lower Extremity MDM - Medical Decision Making This is a 48-year-old female that presents with left knee, ankle, and leg strain. Patient is stable and was examined by me. I referred patient to an orthopedic doctor for further evaluation for possible MRI. X-ray has been obtained and dictated by the radiologist. Patient is notified of the x-ray repo rt with noted by the patient. Patient does have normal gait with no tenderness and no joint swelling. No ecchymosis. no joint redness or swelling. Not warm to touch. No signs of cellulites present. Patient received a ankle stirrup and afshni wrap to knee and crutches. Was educatd by RN how to use crutches. Patient was instructed to RICE therapy. Patient received Motrin for pain. Patient is disc harged with Motrin. At time of discharge, the patient does not seem toxic or ill in appearance. No acute signs of distress noted. Patient agrees to discharge treatment plan of care. No further questions noted by the patient. Critical care attestation.: If time is entered above; I have spent that time in minutes in the direct care of this critically ill patient, excluding procedure time. ED Disposition Clinical Impression: Strain of left knee, Left ankle strain Disposition: DC-01 TO HOME OR SELFCARE Is pt being admited?: No Does the pt Need Aspirin: No Condition: Stable Instructions: RICE Therapy (ED), Crutch Instructions (ED), Ankle Sprain (ED), Ankle Stirrup Splint (ED) Additional Instructions: Follow-up with a orthopedic doctor in 3-5 days or if symptoms worsen and continue return to emergency room as soon as possible. Prescriptions: Ibuprofen [Motrin] 600 mg PO Q8H PRN #20 tablet PRN Reason: Pain Referrals: PRIMARY CAREMD [Referring] - 3-5 Days ROSAURA MCLEAN MD [Staff Physician] - 3-5 Days [facility] [Outside] - 3-5 Days Forms: Work/School Release Form(ED)
--- NOTE | 2018-09-14 09:43 | XRay Report ---
LEFT TIBIA/FIBULA: History: Pain. AP and lateral views of the left tibia/fibula demonstrate normal mineralization and contours for this patient's age. No destructive changes are noted and the adjacent soft tissues are normal. IMPRESSION: Normal left tibia/fibula.
--- NOTE | 2018-09-14 09:43 | XRay Report ---
LEFT KNEE, 3 views: History: Pain. The bony architecture is intact without evidence of fracture or dislocation. Moderate osteoarthritic changes are identified in all 3 compartments. No significant soft tissue abnormality is seen. IMPRESSION: Osteoarthritis. No acute injury is identified.
--- NOTE | 2018-09-14 09:44 | XRay Report ---
LEFT ANKLE, 3 views: History: left ankle pain. Bone mineralization is normal. No evidence for acute fracture or bone lesion. Mild osteoarthritic changes are identified at the tibiotalar joint. Large plantar spur. IMPRESSION: Osteoarthritis. Plantar spur. No acute injury is appreciated.
== END 2018-09-14 10:13 | disposition home or self-care (01) ==
LOC: ED 08:34
DX: S96.912A Strain of unspecified muscle and tendon at ankle and foot level, left foot, initial encounter (principal); S86.812A Strain of other muscle(s) and tendon(s) at lower leg level, left leg, initial encounter; J44.9 Chronic obstructive pulmonary disease, unspecified; M19.90 Unspecified osteoarthritis, unspecified site; E11.9 Type 2 diabetes mellitus without complications; Z86.73 Personal history of transient ischemic attack (TIA), and cerebral infarction without residual deficits; Z98.51 Tubal ligation status; Z90.710 Acquired absence of both cervix and uterus; Z87.891 Personal history of nicotine dependence; Z79.899 Other long term (current) drug therapy; Z88.1 Allergy status to other antibiotic agents; Z88.6 Allergy status to analgesic agent; Z88.4 Allergy status to anesthetic agent; Z88.8 Allergy status to other drugs, medicaments and biological substances; Z91.040 Latex allergy status; X50.1XXA Overexertion from prolonged static or awkward postures, initial encounter; Y93.89 Activity, other specified; Y92.89 Other specified places as the place of occurrence of the external cause; Y99.8 Other external cause status

== ENCOUNTER 2018-12-11 17:38 | Emergency (ER) | payer MEDICAID ==
[2018-12-11 17:50] VITALS: BP 148/88
--- NOTE | 2018-12-11 17:55 | Emergency Department Report ---
Blank Doc - Documentation Documentation: This is a 48-year-old female that presents with left knee, tib-fib, and ankle pain x3 months. Patient had a fall 3 months ago and had xrays in the ED 3 months ago here. Denies any new injuries. This initial assessment/diagnostic orders/clinical plan/treatment(s) is/are subject to change based on patient's health status, clinical progression and re- assessment by fellow clinical providers in the ED. Further treatment and workup at subsequent clinical providers discretion. Patient/guardians urged not to elope from the ED as their condition may be serious if not clinically assessed and managed. Initial orders include: 1- Patient sent to [facility] for further evaluation and treatment
[2018-12-11] MEDS ORDERED: DECADRON IM ONE (19:26)
[2018-12-11] MEDS ORDERED: FLEXERIL PO ONE (19:26)
[2018-12-11] MEDS ORDERED: TORADOL IM ONE (19:26)
--- NOTE | 2018-12-11 20:45 | Emergency Department Report ---
ED Extremity Problem HPI - General Chief complaint: Extremity Injury, Lower Stated complaint: LT LEG PAIN Time Seen by Provider: 12/11/18 17:52 Source: patient Mode of arrival: Ambulatory Limitations: No Limitations - History of Present Illness Initial comments: Patient is a 48-year-old -[place] female with a history of chronic osteoarthritis and morbid obesity who presents to the ED with a complaint of acute onset persistent severe left knee joint pain that is reducible left lower leg and left ankle for the last 1 week, worse in the last 2 days. Patient states that she has been taking [id number] NSAIDs with no relief. Patient denies chest pain, shortness of breath, heavy lifting, fall, traumatic injury, numbness and tingling of her left leg, back pain, hip pain, dizziness, or fever and chills. MD Complaint: extremity pain (left knee and lower leg), joint swelling (left knee), joint paint (left knee) -: Sudden, week(s) (1) Location: left, lower extremity (left lower leg), knee History of Same: Yes (chronic osteoathritis) -: Yes arthralgia, No associated dyspnea, No associated chest pain Radiation: none Severity scale (0 -10): 9 Quality: aching, sharp, constant Consistency: constant Improves with: nothing Worsens with: weight bearing, walking, palpation Associated Symptoms: denies other symptoms, arthralgias. denies: chest pain, shortness of breath, fever - Related Data Previous Rx's Medication Instructions Recorded Last Taken Type Cyclobenzaprine [Flexeril] 10 mg PO BID PRN #30 tablet 01/27/17 Unknown Rx Ibuprofen [Motrin] 800 mg PO Q8HR PRN #40 tablet 01/27/17 Unknown Rx Amoxicillin/Potassium Clav 1 each PO Q12H #20 tablet 04/22/17 Unknown Rx [Augmentin 875-125 Tablet] Cetirizine HCl [ZyrTEC] 10 mg PO QAM #1 capsule 04/22/17 Unknown Rx Fluticasone [Flonase] 1 spray NS QDAY #1 bottle 04/22/17 Unknown Rx predniSONE [Deltasone] 50 mg PO QAM #5 tablet 04/22/17 Unknown Rx methOCARBAMOL [Robaxin TAB] 500 mg PO Q6H PRN #15 tablet 06/18/17 Unknown Rx Sulfamethoxazole/Trimethoprim 1 each PO BID #14 tablet 06/28/17 Unknown Rx [Bactrim DS TAB] Ibuprofen [Motrin] 600 mg PO Q8H PRN #12 tablet 03/16/18 Unknown Rx cephALEXin [Keflex] 500 mg PO Q8HR 7 Days #21 cap 03/16/18 Unknown Rx Ibuprofen [Motrin] 600 mg PO Q8H PRN #20 tablet 09/14/18 Unknown Rx Baclofen 20 mg PO Q8H PRN #24 tablet 12/11/18 Unknown Rx Ibuprofen [Motrin] 800 mg PO Q8HR PRN #30 tablet 12/11/18 Unknown Rx Prednisone [predniSONE 10 mg 10 mg PO .TAPER #21 tab.ds.pk 12/11/18 Unknown Rx (6-Day Pack, 21 Tabs)] Allergies Allergy/AdvReac Type Severity Reaction Status Date / Time hydrocodone bitartrate AdvReac Vomiting Verified 12/11/18 17:53 [From Vicodin] hydromorphone HCl AdvReac Vomiting Verified 12/11/18 17:53 [From Dilaudid] latex AdvReac Itching Verified 12/11/18 17:53 morphine AdvReac Vomiting Verified 12/11/18 17:53 oxycodone HCl [From Percocet] AdvReac Vomiting Verified 12/11/18 17:53 propoxyphene napsylate AdvReac Vomiting Verified 12/11/18 17:53 [From Darvocet-N 100] tramadol AdvReac Itching Verified 12/11/18 17:53 SEAFOOD Allergy Swelling Uncoded 12/11/18 17:53 ED Review of Systems ROS: Stated complaint: LT LEG PAIN Other details as noted in HPI Constitutional: denies: chills, fever Eyes: denies: eye pain, eye discharge, vision change ENT: denies: ear pain, throat pain Respiratory: denies: cough, shortness of breath, wheezing Cardiovascular: denies: chest pain, palpitations Endocrine: no symptoms reported Gastrointestinal: denies: abdominal pain, nausea, diarrhea Genitourinary: denies: urgency, dysuria, discharge Musculoskeletal: joint swelling (left knee joint), arthralgia (left knee and left lower leg pain), myalgia. denies: back pain Skin: denies: rash, lesions Neurological: denies: headache, weakness, paresthesias Psychiatric: denies: anxiety, depression Hematological/Lymphatic: denies: easy bleeding, easy bruising ED Past Medical Hx - Past Medical History Previous Medical History?: Yes Hx CVA: Yes (TIA) Hx Diabetes: Yes (DIET CONTROLLED) Hx Arthritis: Yes Hx Asthma: Yes Hx COPD: Yes Additional medical history: DJD - Surgical History Past Surgical History?: Yes Additional Surgical History: TUBAL LIGATION. HYSTERECTOMY. RIGHT HIP REPLACEMENT. CERVICAL SURGERY - Social History Smoking Status: Unknown if ever smoked Substance Use Type: Alcohol, Marijuana, Prescribed - Medications Home Medications: Home Medications Medication Instructions Recorded Confirmed Last Taken Type Cyclobenzaprine [Flexeril] 10 mg PO BID PRN #30 tablet 01/27/17 Unknown Rx Ibuprofen [Motrin] 800 mg PO Q8HR PRN #40 tablet 01/27/17 Unknown Rx Amoxicillin/Potassium Clav 1 each PO Q12H #20 tablet 04/22/17 Unknown Rx [Augmentin 875-125 Tablet] Cetirizine HCl [ZyrTEC] 10 mg PO QAM #1 capsule 04/22/17 Unknown Rx Fluticasone [Flonase] 1 spray NS QDAY #1 bottle 04/22/17 Unknown Rx predniSONE [Deltasone] 50 mg PO QAM #5 tablet 04/22/17 Unknown Rx methOCARBAMOL [Robaxin TAB] 500 mg PO Q6H PRN #15 tablet 06/18/17 Unknown Rx Sulfamethoxazole/Trimethoprim 1 each PO BID #14 tablet 06/28/17 Unknown Rx [Bactrim DS TAB] Ibuprofen [Motrin] 600 mg PO Q8H PRN #12 tablet 03/16/18 Unknown Rx cephALEXin [Keflex] 500 mg PO Q8HR 7 Days #21 cap 03/16/18 Unknown Rx Ibuprofen [Motrin] 600 mg PO Q8H PRN #20 tablet 09/14/18 Unknown Rx Baclofen 20 mg PO Q8H PRN #24 tablet 12/11/18 Unknown Rx Ibuprofen [Motrin] 800 mg PO Q8HR PRN #30 tablet 12/11/18 Unknown Rx Prednisone [predniSONE 10 mg 10 mg PO .TAPER #21 tab.ds.pk 12/11/18 Unknown Rx (6-Day Pack, 21 Tabs)] ED Physical Exam - General Limitations: No Limitations General appearance: alert, in no apparent distress - Head Head exam: Present: atraumatic, normocephalic, normal inspection - Eye Eye exam: Present: normal appearance, PERRL, EOMI. Absent: scleral icterus, conjunctival injection, nystagmus, periorbital swelling, periorbital tenderness Pupils: Present: normal accommodation - ENT ENT exam: Present: normal exam, normal orophraynx, mucous membranes moist, TM's normal bilaterally, normal external ear exam - Neck Neck exam: Present: normal inspection, full ROM. Absent: tenderness, meningismus, lymphadenopathy, thyromegaly - Respiratory Respiratory exam: Present: normal lung sounds bilaterally. Absent: respiratory distress, wheezes, rales, rhonchi, stridor, chest wall tenderness, accessory muscle use, decreased breath sounds, prolonged expiratory - Cardiovascular Cardiovascular Exam: Present: regular rate, normal rhythm, normal heart sounds. Absent: systolic murmur, diastolic murmur, rubs, gallop - GI/Abdominal GI/Abdominal exam: Present: soft, normal bowel sounds. Absent: tenderness, guarding, hyperactive bowel sounds, hypoactive bowel sounds, organomegaly - Rectal Rectal exam: Present: deferred - Extremities Exam Extremities exam: Present: normal inspection, tenderness (left knee tenderness), normal capillary refill, joint swelling (left knee) - Back Exam Back exam: Present: normal inspection, tenderness (palpable lumbosacral tenderness), muscle spasm, paraspinal tenderness. Absent: CVA tenderness (L) - Neurological Exam Neurological exam: Present: alert, oriented X3, CN II-XII intact, normal gait, reflexes normal - Psychiatric Psychiatric exam: Present: normal affect, normal mood - Skin Skin exam: Present: warm, dry, intact, normal color. Absent: rash ED Course Vital Signs 12/11/18 12/11/18 17:46 20:00 Temperature 98.7 F Pulse Rate 84 Respiratory 18 16 Rate Blood Pressure 148/88 O2 Sat by Pulse 98 Oximetry - Reevaluation(s) Reevaluation #1: 12/11/18 20:49 Patient is alert and oriented 3 and is not in distress. Patient was treated for pain in the ED, and had the left knee joint splinted with an Anrdea wrap. Patient's left knee pain is chronic due to chronic osteoarthritis, and patient was discharged home on pain medications and advised to follow-up with her primary care physician in 7-10 days for reevaluation. Patient advised to return to the ED immediately if symptoms get worse. ED Medical Decision Making - Medical Decision Making Patient is alert and oriented 3 and is not in distress. Patient was treated for pain in the ED, and had the left knee joint splinted with an Andrea wrap. Patient's left knee pain is chronic due to chronic osteoarthritis, and patient was discharged home on pain medications and advised to follow-up with her primary care physician in 7-10 days for reevaluation. Patient advised to return to the ED immediately if symptoms get worse. - Differential Diagnosis Chronic osteoarthritis; chronic pain syndrome Critical care attestation.: If time is entered above; I have spent that time in minutes in the direct care of this critically ill patient, excluding procedure time. ED Disposition Clinical Impression: Chronic pain of left knee, Chronic osteoarthritis Disposition: TO HOME OR SELFCARE Is pt being admited?: No Does the pt Need Aspirin: No Condition: Stable Instructions: Arthralgia (ED), Osteoarthritis (ED), Muscle Spasm (ED) Additional Instructions: Take medications with food, drink plenty of fluids and follow-up with your primary care physician in 7-10 days for reevaluation. Return to the ED immediately if symptoms get worse. Prescriptions: Baclofen 20 mg PO Q8H PRN #24 tablet PRN Reason: Spasms Ibuprofen [Motrin] 800 mg PO Q8HR PRN #30 tablet PRN Reason: Pain , Severe (7-10) Prednisone [predniSONE 10 mg (6-Day Pack, 21 Tabs)] 10 mg PO .TAPER #21 tab.ds.pk Referrals: ASHISH TABOR MD [Primary Care Provider] - 3-5 Days Forms: Work/School Release Form(ED) Time of Disposition: 20:51 Print Language: CAMEROONIAN
== END 2018-12-11 21:11 | disposition home or self-care (01) ==
LOC: ED 17:38
DX: G89.29 Other chronic pain (principal); M17.12 Unilateral primary osteoarthritis, left knee; Z88.5 Allergy status to narcotic agent; Z91.040 Latex allergy status; Z88.6 Allergy status to analgesic agent; Z91.013 Allergy to seafood; Z88.8 Allergy status to other drugs, medicaments and biological substances
CPT/HCPCS: 96372; 99282; J1100; J1885

== ENCOUNTER 2019-03-31 09:35 | Emergency (ER) | payer MEDICAID ==
[2019-03-31] MEDS ORDERED: IBUPROFEN 800 MG TAB PO ONE (10:14)
[2019-03-31] MEDS ORDERED: KETOROLAC 60 MG/2 ML INJ IM ONE (10:14)
[2019-03-31] MEDS ORDERED: predniSONE 20 MG TAB PO ONE (10:14)
--- NOTE | 2019-03-31 10:19 | Emergency Department Report ---
ED Back Pain/Injury HPI - General Chief Complaint: Extremity Problem,Nontraumatic Stated Complaint: L KNEE PAIN/CANT WALK Time Seen by Provider: 03/31/19 09:59 Source: patient Limitations: No Limitations - History of Present Illness Initial Comments: 49 yo AA female comes to ER from work co l knee pain. She a/c knee pain due to a meniscus tear 2 years ago. She states she has had inc pain over the last few days and her boss put her in an uber to come to ER. Pt is on motrin at home. See allergy list. There is no new fall or trauma. Pt is morbidly obese. Pt can walk but with pain MD Complaint: other -: Gradual Similar Symptoms Previously: Yes Place: home Radiation: none Severity: severe Consistency: constant Worsens With: movement Associated Symptoms: denies other symptoms - Related Data Previous Rx's Medication Instructions Recorded Last Taken Type Baclofen 20 mg PO Q8H PRN #24 tablet 12/11/18 Unknown Rx predniSONE [Deltasone] 20 mg PO DAILY #5 tablet 03/31/19 Unknown Rx Allergies Allergy/AdvReac Type Severity Reaction Status Date / Time hydrocodone bitartrate AdvReac Vomiting Verified 12/11/18 17:53 [From Vicodin] hydromorphone HCl AdvReac Vomiting Verified 12/11/18 17:53 [From Dilaudid] latex AdvReac Itching Verified 12/11/18 17:53 morphine AdvReac Vomiting Verified 12/11/18 17:53 oxycodone HCl [From Percocet] AdvReac Vomiting Verified 12/11/18 17:53 propoxyphene napsylate AdvReac Vomiting Verified 12/11/18 17:53 [From Darvocet-N 100] tramadol AdvReac Itching Verified 12/11/18 17:53 SEAFOOD Allergy Swelling Uncoded 12/11/18 17:53 ED Review of Systems ROS: Stated complaint: L KNEE PAIN/CANT WALK Other details as noted in HPI Comment: All other systems reviewed and negative ED Past Medical Hx - Past Medical History Medical history: arthritis, asthma, COPD, diabetes (diet controlled) DJD- a/c l knee pain with torn meniscus 2 2016; morbid obesity Psychiatric history: no pertinent history Family history: hypertension ED Back Pain Physical Exam - Exam General: Vital signs noted. No distress. Alert and acting appropriately. morbid obesity and body habitus limits knee exam; no palp. effusion. no joint tenderness no appreciated swelling hip and ankle with full Rom Back/Abdomen: No Abdominal Tenderness, No Perithoracic Tenderness, No Perilumbar Tenderness, No Sacroiliac Tenderness, No Flank Tenderness, No Straight Leg Raise Pain Neuro: Yes Normal Sensation, Yes Normal DTR's, No Motor Weakness, No Normal Gait (pt states she is in too much pain to walk) ED Course Vital Signs 03/31/19 09:45 Temperature 98.3 F Pulse Rate 75 Respiratory 16 Rate Blood Pressure 129/57 [Left] O2 Sat by Pulse 96 Oximetry ED Medical Decision Making - Medical Decision Making no indication for xray - chronic pain of the l knee sp meniscus tear 2 y ago long discussion with pt about limitations in ER; and that she need to see an ortho MD for her pain and definitive care of her knee. medicated with prednisone/toradol in ER knee immob. and crutches pt is calling her ortho MD to see if they can get her in sooner than next Wednesday when she has appnt. dc home with plan of care Vital Signs 03/31/19 09:45 Temperature 98.3 F Pulse Rate 75 Respiratory 16 Rate Blood Pressure 129/57 [Left] O2 Sat by Pulse 96 Oximetry - Differential Diagnosis a/c pain Critical care attestation.: If time is entered above; I have spent that time in minutes in the direct care of this critically ill patient, excluding procedure time. ED Disposition Clinical Impression: Knee pain, left Disposition: DC-01 TO HOME OR SELFCARE Is pt being admited?: No Does the pt Need Aspirin: No Condition: Stable Instructions: Arthralgia (ED) Additional Instructions: alternate heat and cool compresses continue home motrin steroids as ordered today monitor your diet because your blood glucose could go up hydrate well with water see ORTHO MD pierre for further testing and treatment Prescriptions: predniSONE [Deltasone] 20 mg PO DAILY #5 tablet Referrals: PRIMARY CAREMD [Primary Care Provider] - 3-5 Days ROSAURA MCLEAN MD [Staff Physician] - 3-5 Days Time of Disposition: 10:17
[2019-03-31 10:35] VITALS: BP 121/74
== END 2019-03-31 10:34 | disposition home or self-care (01) ==
LOC: ED 09:35
DX: M25.562 Pain in left knee (principal); J44.9 Chronic obstructive pulmonary disease, unspecified; E11.9 Type 2 diabetes mellitus without complications; E66.01 Morbid (severe) obesity due to excess calories; Z68.41 Body mass index [BMI] 40.0-44.9, adult; Z88.5 Allergy status to narcotic agent; Z91.040 Latex allergy status; Z88.8 Allergy status to other drugs, medicaments and biological substances; Z91.013 Allergy to seafood
CPT/HCPCS: 29505; 96372; 99283; J1885; J7512

== ENCOUNTER 2019-07-17 14:55 | Emergency (ER) | payer MEDICAID ==
--- NOTE | 2019-07-17 17:45 | Emergency Department Report ---
Blank Doc - Documentation Documentation: 49-year-old female that presents with headache x4 days. Was sent by PCP for CT of head. Exam: no facial drooping. no one sided weakness. PERRLA. EMOI. This initial assessment/diagnostic orders/clinical plan/treatment(s) is/are subject to change based on patient's health status, clinical progression and re- assessment by fellow clinical providers in the ED. Further treatment and workup at subsequent clinical providers discretion. Patient/guardians urged not to elope from the ED as their condition may be serious if not clinically assessed and managed. Initial orders include: 1- Patient sent to [facility] for further evaluation and treatment 2-Ct head
--- NOTE | 2019-07-17 18:32 | Cat Scan Report ---
NONENHANCED CT SCAN OF THE HEAD: INDICATION / CLINICAL INFORMATION: 49 years Female; headache. TECHNIQUE: Routine CT head without contrast. All CT scans at this location are performed using CT dos e reduction for ALARA by means of automated exposure control. COMPARISON: None. FINDINGS: BRAIN / INTRACRANIAL CONTENTS: No acute hemorrhage, mass effect, midline shift, hydrocephalus, or acu te, large territorial infarct. No chronic infarct or focal atrophy. Normal brain volume and ventricul ar/sulcal size for age. No significant white matter abnormality. CRANIOCERVICAL JUNCTION: No significant abnormality. ORBITS: No significant abnormality of visualized orbits. SINUSES / MASTOIDS: Mucosal thickening is seen in the right maxillary sinus and left sphenoid sinus.. ADDITIONAL FINDINGS: None. IMPRESSION: Normal nonenhanced CT scan of the brain. Signer Name: Suad Guzmán MD Signed: 07/17/2019 6:27 PM Workstation Name: [id number]
[2019-07-17 20:41] VITALS: BP 128/110
[2019-07-17] MEDS ORDERED: KETOROLAC 60 MG/2 ML INJ IM ONE (21:43)
[2019-07-17] MEDS ORDERED: diphenhydrAMINE 25 MG CAP PO ONE (21:43)
[2019-07-17] MEDS ORDERED: METOCLOPRAMIDE 10 MG TAB PO ONE (21:43)
--- NOTE | 2019-07-17 22:29 | Emergency Department Report ---
ED General Adult HPI - General Chief complaint: Headache Stated complaint: HEADACHE Time Seen by Provider: 07/17/19 17:43 Source: patient Mode of arrival: Ambulatory Limitations: No Limitations - History of Present Illness Initial comments: 49-year-old female with a history of arthritis, TIA and asthma presents with complaint of headache. Patient states she's had a constant headache for the past week. Patient complains of photophobia. Patient denies nausea or presents any trauma or syncopal events. Patient denies any slurred speech or focal weakn ess. Patient was sent to the emergency department after being [facility] for [facility] of headache. Patient has been taking Motrin with minimal relief of her headache. Severity scale (0 -10): 10 - Related Data Previous Rx's Medication Instructions Recorded Last Taken Type Baclofen 20 mg PO Q8H PRN #24 tablet 12/11/18 Unknown Rx predniSONE [Deltasone] 20 mg PO DAILY #5 tablet 03/31/19 Unknown Rx Allergies Allergy/AdvReac Type Severity Reaction Status Date / Time hydrocodone bitartrate AdvReac Vomiting Verified 07/17/19 14:57 [From Vicodin] hydromorphone HCl AdvReac Vomiting Verified 07/17/19 14:57 [From Dilaudid] latex AdvReac Itching Verified 07/17/19 14:57 morphine AdvReac Vomiting Verified 07/17/19 14:57 oxycodone HCl [From Percocet] AdvReac Vomiting Verified 07/17/19 14:57 propoxyphene napsylate AdvReac Vomiting Verified 07/17/19 14:57 [From Darvocet-N 100] tramadol AdvReac Itching Verified 07/17/19 14:57 SEAFOOD Allergy Swelling Uncoded 12/11/18 17:53 ED Review of Systems ROS: Stated complaint: HEADACHE Other details as noted in HPI Constitutional: denies: chills, fever Eyes: denies: eye pain, eye discharge, vision change ENT: denies: ear pain, throat pain Respiratory: denies: cough, shortness of breath, wheezing Cardiovascular: denies: chest pain, palpitations Endocrine: no symptoms reported Gastrointestinal: denies: abdominal pain, nausea, diarrhea Genitourinary: denies: urgency, dysuria, discharge Musculoskeletal: denies: back pain, joint swelling, arthralgia Skin: denies: rash, lesions Neurological: headache. denies: weakness, paresthesias Psychiatric: denies: anxiety, depression Hematological/Lymphatic: denies: easy bleeding, easy bruising ED Past Medical Hx - Past Medical History Previous Medical History?: Yes Hx Hypertension: Yes Hx CVA: Yes (TIA) Hx Diabetes: Yes (DIET CONTROLLED) Hx Arthritis: Yes Hx Asthma: Yes Hx COPD: Yes Additional medical history: DJD- a/c l knee pain with torn meniscus 2 2016; morbid obesity - Surgical History Past Surgical History?: Yes Additional Surgical History: TUBAL LIGATION. HYSTERECTOMY. RIGHT HIP REPLACEMENT. CERVICAL SURGERY - Social History Smoking Status: Current Every Day Smoker Substance Use Type: None - Medications Home Medications: Home Medications Medication Instructions Recorded Confirmed Last Taken Type Baclofen 20 mg PO Q8H PRN #24 tablet 12/11/18 Unknown Rx predniSONE [Deltasone] 20 mg PO DAILY #5 tablet 03/31/19 Unknown Rx ED Physical Exam - General Limitations: No Limitations General appearance: alert, other (mild distress; uncomfortable) - Head Head exam: Present: atraumatic, normocephalic - Eye Eye exam: Present: normal appearance - ENT ENT exam: Present: mucous membranes moist - Neck Neck exam: Present: normal inspection - Respiratory Respiratory exam: Present: normal lung sounds bilaterally. Absent: respiratory distress - Cardiovascular Cardiovascular Exam: Present: regular rate, normal rhythm. Absent: systolic murmur, diastolic murmur, rubs, gallop - GI/Abdominal GI/Abdominal exam: Present: soft, normal bowel sounds - Extremities Exam Extremities exam: Present: normal inspection - Back Exam Back exam: Present: normal inspection - Neurological Exam Neurological exam: Present: alert, oriented X3 - Psychiatric Psychiatric exam: Present: normal affect, normal mood - Skin Skin exam: Present: warm, dry, intact, normal color. Absent: rash ED Course Vital Signs 07/17/19 07/17/19 07/17/19 17:03 17:43 20:41 Temperature 98.4 F 98.4 F 98.6 F Pulse Rate 68 71 71 Respiratory 20 18 18 Rate Blood Pressure 145/74 145/74 Blood Pressure 128/110 [Left] O2 Sat by Pulse 96 96 98 Oximetry ED Medical Decision Making - Medical Decision Making Patient's NIH score is 0. Patient's an upright comfortable after receiving Toradol Reglan and Benadryl therapy while here in emergency department. Patient's CT shows no acute pathology. - Differential Diagnosis intracranial bleed; cranial mass Critical care attestation.: If time is entered above; I have spent that time in minutes in the direct care of this critically ill patient, excluding procedure time. ED Disposition Clinical Impression: Headache Disposition: DC-01 TO HOME OR SELFCARE Is pt being admited?: No Condition: Stable Instructions: Tension Headache (ED) Referrals: PRIMARY CARE, [Primary Care Provider] - 3-5 Days Time of Disposition: 22:28 Print Language: URDU
== END 2019-07-17 22:47 | disposition home or self-care (01) ==
LOC: ED 14:55
DX: R51 Headache (principal); H53.149 Visual discomfort, unspecified; E11.9 Type 2 diabetes mellitus without complications; M19.90 Unspecified osteoarthritis, unspecified site; J44.9 Chronic obstructive pulmonary disease, unspecified; F17.200 Nicotine dependence, unspecified, uncomplicated; Z86.73 Personal history of transient ischemic attack (TIA), and cerebral infarction without residual deficits; Z98.51 Tubal ligation status; Z90.710 Acquired absence of both cervix and uterus; Z88.5 Allergy status to narcotic agent; Z91.040 Latex allergy status; Z88.8 Allergy status to other drugs, medicaments and biological substances; Z91.013 Allergy to seafood
CPT/HCPCS: 70450; 96372; 99283; J1885